=== PATIENT | female | born 1990 | race American Indian/Alaskan Native ===

== ENCOUNTER 2019-04-02 08:14 | Emergency (ER) | payer SELFPAY ==
[2019-04-02 09:05] VITALS: BP 144/79
--- NOTE | 2019-04-02 09:28 | Emergency Department Report ---
Blank Doc - Documentation Documentation: I never got to see this patient prior to her elopement from the emergency [facility]. Apparently the patient came in by EMS with the complaint of anxiety or a panic attack. She is unknown to me. Initially she came in with a rapid heart rate but the rest of her vital signs appeared within normal limits. Patient did have an EKG done that did not show any signs of ST elevation [place] and showed sinus tachycardia with a rate of about 110 bpm. When I went in to see the patient in the room, her gown was on the floor and she was nowhere to be seen. 1 of the ER techs saw the patient in the lobby and says that the patient saw him and then walked out the front door of the emergency department. There was no report from EMS that the patient had any suicidal or homicidal ideations and otherwise I was unable to do any type of evaluation. The patient was not a 1013 when she jim ped.
[2019-04-02 09:31] LABS: Basophils # (Auto) 0.1 K/mm3 (0.0-0.1); Basophils % (Auto) 0.7 % (0.0-1.8); Eosinophils # (Auto) 0.2 K/mm3 (0.0-0.4); Eosinophils % (Auto) 2.8 % (0.0-4.3); Hematocrit 37.3 % (30.3-42.9); Hemoglobin 12.3 gm/dl (10.1-14.3); Lymphocytes # (Auto) 1.5 K/mm3 (1.2-5.4); Lymphocytes % (Auto) 17.2 % (13.4-35.0); Mean Corpuscular HGB Conc 33 % (30-34); Mean Corpuscular Volume 95 fl (79-97); Monocytes # (Auto) 0.6 K/mm3 (0.0-0.8); Monocytes % (Auto) 6.9 % (0.0-7.3); Platelet Count 297 K/mm3 (140-440); Red Blood Count 3.92 M/mm3 (3.65-5.03); Red Cell Distribution Width 15.3 % (13.2-15.2)
[2019-04-02 09:54] LABS: BUN/Creatinine Ratio 16; Blood Urea Nitrogen 14 mg/dL (7-17); Calcium 9.6 mg/dL (8.4-10.2); Hemolysis Index 3
== END 2019-04-02 09:30 | disposition left against medical advice (07) ==
LOC: ED 08:14
DX: R10.9 Unspecified abdominal pain (principal); Z53.21 Procedure and treatment not carried out due to patient leaving prior to being seen by health care provider
CPT/HCPCS: 36415; 80048; 80320; 84443; 84703; 85025; 93005; 93010; G0480